=== PATIENT | female | born 1950 | race Caucasian/White ===

== ENCOUNTER 2017-11-06 11:40 | Inpatient (IN) | payer OTHER ==
[~2017-11-06] VITALS: Ht 180.3 cm; Wt 77.4 kg
[2017-11-06 12:53] LABS: EOSINOPHIL (%) 0.7 % (0-5); EOSINOPHIL COUNT 0.1 K/uL (0-0.3); HEMATOCRIT 42.1 % (36.0-46.0); IMMATURE GRANULOCYTE (%) 0.5 % (0.0-0.7); INSTRUMENT ABS NEUTROPHIL CT 5.9 K/uL; LYMPHOCYTE COUNT 1.7 K/uL (1.0-2.8); MCH 31.8 PG (29.0-34.0); MCHC 34.4 G/DL (30.0-36.0); MCV 92.3 FL (83-99); MEAN PLAT.VOLUME 10.7 uM^3 (9.5-12.4); MONOCYTE (%) 5.2 % (3-12); MONOCYTE COUNT 0.4 K/uL (0-0.8); NEUTROPHIL COUNT 5.9 K/uL (1.8-6.4); PLATELET COUNT 153 K/uL (156-360); RBC DIS.WIDTH-CV 12.4 % (11.8-14.6); RBC DIS.WIDTH-SD 42.4 % (39-53); RED BLOOD COUNT 4.56 M/uL (3.80-5.20); WHITE BLOOD COUNT 8.1 K/uL (4.1-10.2)
[2017-11-06 13:04] LABS: CHLORIDE 106 mEq/L (99-109); POTASSIUM 3.6 mEq/L (3.7-5.4); SODIUM 139 mEq/L (136-147)
[2017-11-06 13:07] LABS: GLUCOSE 125 mg/dL (70-99)
[2017-11-06 13:08] LABS: ANION GAP 11 MEQ/L (2-14); TOTAL BILIRUBIN 0.7 mg/dL (0.0-1.0)
[2017-11-06 13:10] LABS: ALKALINE PHOSPHATASE 91 IU/L (3-129); GFR ESTIMATE (CALCULATED) > 59 mL/min/
[2017-11-06 13:11] LABS: UREA NITROGEN (BUN) 12 mg/dL (9-23)
[2017-11-06 13:14] LABS: TROP-I INTERPRETATION NEGATIVE; TROPONIN-I < 0.01 ng/mL (0.0-0.30)
[2017-11-06] MEDS ORDERED: ATIVAN1 MG PO (16:06)
[2017-11-06] MEDS ORDERED: ULTRAM50 MG PO (16:06)
[2017-11-06] MEDS ORDERED: GABAPENTIN300 MG PO (16:06)
[2017-11-06] MEDS ORDERED: DEXILANT60 MG PO (16:06)
[2017-11-06] MEDS ORDERED: DENTA 5000 PLUS51 GM DT (16:07)
[2017-11-06] MEDS ORDERED: FLUOXETINE HCL20 MG PO (16:07)
[2017-11-06] MEDS ORDERED: SUPER MULTIVIT1 EACH PO (16:07)
[2017-11-06] MEDS ORDERED: AMOXICILLIN500 MG PO (16:07)
[2017-11-06 18:46] VITALS: BP 107/53
[2017-11-06 20:25] VITALS: BP 99/49
[2017-11-06 23:50] VITALS: BP 96/54
[2017-11-07 04:19] VITALS: BP 96/51
[2017-11-07 08:37] VITALS: BP 97/49
[2017-11-07 08:46] LABS: MCH 32.4 PG (29.0-34.0); MCHC 34.4 G/DL (30.0-36.0); MCV 94.4 FL (83-99); MEAN PLAT.VOLUME 11.1 uM^3 (9.5-12.4); PLATELET COUNT 133 K/uL (156-360); RBC DIS.WIDTH-CV 12.7 % (11.8-14.6); RBC DIS.WIDTH-SD 44.1 % (39-53); RED BLOOD COUNT 4.13 M/uL (3.80-5.20); WHITE BLOOD COUNT 7.2 K/uL (4.1-10.2)
[2017-11-07 09:02] LABS: ANION GAP 8 MEQ/L (2-14); CHLORIDE 106 MEQ/L (99-109); POTASSIUM 4.2 MEQ/L (3.7-5.4); SAMPLE HEMOLYSIS CHECK 1; SAMPLE ICTERIC CHECK 0; SAMPLE LIPEMIA CHECK 0; SODIUM 137 MEQ/L (136-147); TOTAL BILIRUBIN 0.9 MG/DL (0.0-1.0)
[2017-11-07 09:08] LABS: ALKALINE PHOSPHATASE 59 IU/L (3-129); GFR ESTIMATE (CALCULATED) > 59 mL/min/; GLUCOSE 110 mg/dL (70-99); UREA NITROGEN (BUN) 13 mg/dL (9-23)
[2017-11-07 11:11] VITALS: BP 102/50
[2017-11-07 15:41] LABS: POINT-OF-CARE METER ID UU13113675
[2017-11-07 17:14] LABS: POINT-OF-CARE METER ID UU13113675
[2017-11-07 18:09] LABS: POINT-OF-CARE METER ID UU13113675
[2017-11-07 19:57] VITALS: BP 93/46
[2017-11-07 22:55] LABS: POINT-OF-CARE METER ID UU14117124
[2017-11-08] VITALS (7 sets, daily range): BP systolic 82–129; BP diastolic 40–59
[2017-11-08 07:18] LABS: EOSINOPHIL (%) 1.6 % (0-5); EOSINOPHIL COUNT 0.1 K/uL (0-0.3); HEMATOCRIT 35.9 % (36.0-46.0); IMMATURE GRANULOCYTE (%) 0.5 % (0.0-0.7); INSTRUMENT ABS NEUTROPHIL CT 4.1 K/uL; LYMPHOCYTE COUNT 1.6 K/uL (1.0-2.8); MCH 31.4 PG (29.0-34.0); MCHC 32.6 G/DL (30.0-36.0); MCV 96.2 FL (83-99); MEAN PLAT.VOLUME 11.1 uM^3 (9.5-12.4); MONOCYTE (%) 8.8 % (3-12); MONOCYTE COUNT 0.6 K/uL (0-0.8); NEUTROPHIL (%) 64.2 % (45-76); NEUTROPHIL COUNT 4.1 K/uL (1.8-6.4); PLATELET COUNT 107 K/uL (156-360); RBC DIS.WIDTH-CV 12.4 % (11.8-14.6); RBC DIS.WIDTH-SD 43.8 % (39-53); RED BLOOD COUNT 3.73 M/uL (3.80-5.20); WHITE BLOOD COUNT 6.4 K/uL (4.1-10.2)
[2017-11-08 07:38] LABS: ANION GAP 3 MEQ/L (2-14); CHLORIDE 107 MEQ/L (99-109); GFR ESTIMATE (CALCULATED) > 59 mL/min/; POTASSIUM 4.3 MEQ/L (3.7-5.4); SAMPLE HEMOLYSIS CHECK 0; SAMPLE ICTERIC CHECK 0; SAMPLE LIPEMIA CHECK 0; SODIUM 139 MEQ/L (136-147); UREA NITROGEN (BUN) 9 mg/dL (9-23)
[2017-11-08 07:41] LABS: GLUCOSE 82 mg/dL (70-99)
[2017-11-08 12:14] LABS: POINT-OF-CARE METER ID UU14117124
[2017-11-08 16:39] LABS: POINT-OF-CARE METER ID UU14188577
[2017-11-08 21:33] LABS: POINT-OF-CARE METER ID UU14188577
[2017-11-09 04:00] VITALS: BP 114/57
[2017-11-09 05:43] LABS: MCH 31.3 PG (29.0-34.0); MCHC 33.1 G/DL (30.0-36.0); MCV 94.3 FL (83-99); MEAN PLAT.VOLUME 10.7 uM^3 (9.5-12.4); PLATELET COUNT 109 K/uL (156-360); RBC DIS.WIDTH-CV 12.1 % (11.8-14.6); RBC DIS.WIDTH-SD 41.6 % (39-53); RED BLOOD COUNT 3.71 M/uL (3.80-5.20); WHITE BLOOD COUNT 6.2 K/uL (4.1-10.2)
[2017-11-09 06:15] LABS: ANION GAP 7 MEQ/L (2-14); CHLORIDE 104 MEQ/L (99-109); GFR ESTIMATE (CALCULATED) > 59 mL/min/; GLUCOSE 92 mg/dL (70-99); POTASSIUM 3.8 MEQ/L (3.7-5.4); SAMPLE HEMOLYSIS CHECK 0; SAMPLE ICTERIC CHECK 0; SAMPLE LIPEMIA CHECK 0; SODIUM 138 MEQ/L (136-147); UREA NITROGEN (BUN) 7 mg/dL (9-23)
[2017-11-09 07:06] LABS: POINT-OF-CARE METER ID UU14117124
[2017-11-09 07:19] VITALS: BP 115/54
[2017-11-09 11:10] VITALS: BP 112/56
[2017-11-09] MEDS ORDERED: DOCUSATE SODIU100 MG PO (11:14)
[2017-11-09] MEDS ORDERED: POLYETHYLENE GL17 GM PO (11:14)
[2017-11-09] MEDS ORDERED: LOVENOX40 MG/0.4 SC (11:14)
[2017-11-09] MEDS ORDERED: OXAYDO5 MG PO (11:14)
[2017-11-09 11:43] LABS: POINT-OF-CARE METER ID UU14117124
[2017-11-09 13:26] LABS: INTER. NORMALIZED RATIO 1.1; PROTHROMBIN TIME 12.6 SEC (10.2-12.9)
[2017-11-09 15:10] VITALS: BP 117/55
[2017-11-09 16:18] LABS: POINT-OF-CARE METER ID UU14117124
[2017-11-09 19:38] VITALS: BP 106/51
[2017-11-09 21:32] LABS: POINT-OF-CARE METER ID UU14117124
[2017-11-09 23:19] VITALS: BP 101/53
[2017-11-10 04:14] VITALS: BP 113/57
[2017-11-10 06:04] LABS: EOSINOPHIL (%) 2.9 % (0-5); EOSINOPHIL COUNT 0.1 K/uL (0-0.3); IMMATURE GRANULOCYTE (%) 0.2 % (0.0-0.7); INSTRUMENT ABS NEUTROPHIL CT 2.5 K/uL; LYMPHOCYTE COUNT 1.4 K/uL (1.0-2.8); MCH 31.3 PG (29.0-34.0); MCHC 33.5 G/DL (30.0-36.0); MCV 93.4 FL (83-99); MEAN PLAT.VOLUME 10.4 uM^3 (9.5-12.4); MONOCYTE (%) 8.7 % (3-12); MONOCYTE COUNT 0.4 K/uL (0-0.8); NEUTROPHIL (%) 56.8 % (45-76); NEUTROPHIL COUNT 2.5 K/uL (1.8-6.4); PLATELET COUNT 124 K/uL (156-360); RBC DIS.WIDTH-CV 11.9 % (11.8-14.6); RBC DIS.WIDTH-SD 41.6 % (39-53); RED BLOOD COUNT 3.64 M/uL (3.80-5.20); WHITE BLOOD COUNT 4.5 K/uL (4.1-10.2)
[2017-11-10 06:13] LABS: INTER. NORMALIZED RATIO 1.1; PROTHROMBIN TIME 12.8 SEC (10.2-12.9)
[2017-11-10 06:43] LABS: ANION GAP 7 MEQ/L (2-14); CHLORIDE 105 MEQ/L (99-109); GFR ESTIMATE (CALCULATED) > 59 mL/min/; GLUCOSE 92 mg/dL (70-99); POTASSIUM 3.6 MEQ/L (3.7-5.4); SAMPLE HEMOLYSIS CHECK 0; SAMPLE ICTERIC CHECK 0; SAMPLE LIPEMIA CHECK 0; SODIUM 142 MEQ/L (136-147); UREA NITROGEN (BUN) 5 mg/dL (9-23)
[2017-11-10 07:09] LABS: POINT-OF-CARE METER ID UU14117124
[2017-11-10 07:21] VITALS: BP 108/56
[2017-11-10 10:48] VITALS: BP 112/54
[2017-11-10] MEDS ORDERED: COUMADIN5 MG PO (11:10)
[2017-11-10 11:55] LABS: POINT-OF-CARE METER ID UU14149397
== END 2017-11-10 14:07 | DRG 956 ==
LOC: EME 11:40 → 3EAST 14:12 → EDOF 14:12 → ENRESERV 14:13 → 3EAST 17:19
PROVIDERS: Emergency Medicine; Internal Medicine; Physician Assistant
PROC: 0QH734Z Insertion of Internal Fixation Device into Left Upper Femur, Percutaneous Approach (ICD-10-PCS; principal; 2017-11-08)
DX: S72.012A Unspecified intracapsular fracture of left femur, initial encounter for closed fracture (principal); W07.XXXA Fall from chair, initial encounter; Y92.009 Unspecified place in unspecified non-institutional (private) residence as the place of occurrence of the external cause; S32.592A Other specified fracture of left pubis, initial encounter for closed fracture; G62.9 Polyneuropathy, unspecified; M46.92 Unspecified inflammatory spondylopathy, cervical region; E11.42 Type 2 diabetes mellitus with diabetic polyneuropathy; E11.9 Type 2 diabetes mellitus without complications; D69.6 Thrombocytopenia, unspecified; D64.9 Anemia, unspecified; G47.30 Sleep apnea, unspecified; K27.9 Peptic ulcer, site unspecified, unspecified as acute or chronic, without hemorrhage or perforation
CPT/HCPCS: 71010; 73501; 73502; 76000; 80048; 80053; 82948; 84484; 85025; 85027; 85610; 93005; 94799; 99281; 99285; C1713; J0131; J0330; J0690; J1100; J1170; J1650; J1815; J2250; J2270; J2405; J2710; J2765; J3010; J7030; J7050